=== PATIENT | male | born 1980 | race Two or more races ===

== ENCOUNTER 2020-03-08 10:06 | Emergency (ER) | payer OTHER ==
[~2020-03-08] VITALS: Ht 167.6 cm; Wt 68.0 kg
[2020-03-08 10:23] VITALS: BP 124/77
[2020-03-08] MEDS ORDERED: HYDROcodone/APAP 5/325MG 1 TAB TABLET PO ONE (10:45)
--- NOTE | 2020-03-08 10:50 | PHYS DOC ---
Past Medical History Past Medical History: No Pertinent History Past Surgical History: No Surgical History Smoking Status: Never Smoker Alcohol Use: None General Adult EDM: Chief Complaint: LOWER BACK PAIN OR INJURY HPI: HPI: Patient is a 39 year old male presents to the emergency department complaining of back pain after falling at work. 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 Patient states he has had back pain since. Patient states he took 2 regular strength Tylenols yesterday that did not seem to help. Patient denies any numbness or tingling to his extremities. Patient denies loss of bowel or bladder. Patient states she does not smoke cigarettes, does not use illicit drugs, does not drink alcohol. Patient denies any surgical history. Patient states he does not take any medications at home and is not allergic to any medications. Patient denies any other physical symptoms or physical complaints. Review of Systems: Review of Systems: 14 body systems of review of systems have been reviewed. See HPI for pertinent positives and negative responses, otherwise all other systems are negative, nonpertinent or noncontributory. Heart Score: Risk Factors: Risk Factors: DM, Current or recent (<one month) smoker, HTN, HLP, family history of CAD, obesity. Risk Scores: Score 0 - 3: 2.5% MACE over next 6 weeks - Discharge Home Score 4 - 6: 20.3% MACE over next 6 weeks - Admit for Clinical Observation Score 7 - 10: 72.7% MACE over next 6 weeks - Early Invasive Strategies Current Medications: Current Medications Medications (Trade) Dose Ordered Sig/Mary Ann Start Time Stop Time Status Last Admin Dose Admin Acetaminophen/ Hydrocodone Bitart (Lortab 5/325) 2 tab 1X ONCE 03/08/20 10:45 03/08/20 10:46 DC Allergies: Allergies: Allergies Coded Allergies Type Severity Reaction Last Updated Verified No Known Drug Allergies 03/08/20 No Physical Exam: PE: Constitutional: Well developed, well nourished, no acute distress, non-toxic appearance. HENT: Normocephalic, atraumatic, bilateral external ears normal, oropharynx moist, no oral exudates, nose normal. Eyes: PERRLA, EOMI, conjunctiva normal, no discharge. Neck: Normal range of motion, no tenderness, supple, no stridor. Cardiovascular:Heart rate regular rhythm, no murmur, heart sounds S1-S2. Lungs & Thorax: Bilateral breath sounds clear to auscultation Abdomen: Bowel sounds normal, soft, no tenderness, no masses, no pulsatile masses. Skin: Warm, dry, no erythema, no rash. Back: Right-sided CVA tenderness, midline spine pain along lower thoracic to upper lumbar region. No crepitus appreciated, no ecchymotic areas appreciated, no swelling appreciated. Extremities: No tenderness, no cyanosis, no clubbing, ROM intact, no edema. Neurologic: Alert and oriented X 3, normal motor function, normal sensory function, no focal deficits noted. We talked about Psychologic: Affect normal, judgement normal, mood normal. Actually spoke to you about it though as we talked about it in there and she said that she went to go Current Patient Data: Vital Signs: Vital Signs Date Time Temp Pulse Resp B/P (MAP) Pulse Ox O2 Delivery O2 Flow Rate FiO2 03/08/20 10:23 98.7 79 18 124/77 (93) 98 Room Air 98.7 EKG: EKG: [] Radiology/Procedures: Radiology/Procedures: SEX: M EXAM STATUS: REG ER ORD. PHYSICIAN: SANGITA TIDWELL APRN REASON: FALL >10FEET WITH SPINE PAIN PROCEDURE: CT CHEST ABD PELVIS W/CONTRAST EXAM: CT Chest, Abdomen, and Pelvis with IV contrast INDICATION: Reason: FALL >10FEET WITH SPINE PAIN / Spl. Instructions: IV OMMNI 300 75 MLS / History: TECHNIQUE: Multi-detector row CT images were acquired from the thoracic inlet through the ischial tuberosities with the use of IV contrast. Sagittal and coronal images were acquired from the transaxial data. All CT scans performed at this facility utilize dose optimization techniques as appropriate to the exam, including the following: Automated exposure control and adjustment of the mA and/or KV according to patient size (this includes techniques or standardized protocols for targeted exams where dose is indication/reason for exam). IV CONTRAST: Administered ORAL CONTRAST: Not administered COMPARISON: None FINDINGS: CHEST: CARDIOVASCULAR: Unremarkable MEDIASTINUM & RADHA: No adenopathy or masses. LUNGS: No pulmonary infiltrate, nodule, or other focal abnormality. PLEURAL SPACE: No pleural effusions or pneumothorax. OSSEOUS & SOFT TISSUE: There is absence of the right pectoralis major muscle. 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 ABDOMEN/PELVIS: LIVER: Unremarkable BILIARY SYSTEM: Gallbladder is unremarkable. Bile ducts are not dilated. PANCREAS: Unremarkable SPLEEN: Unremarkable ADRENALS: Unremarkable KIDNEYS & URETERS: Unremarkable BLADDER: Unremarkable REPRODUCTIVE ORGANS: Unremarkable GASTROINTESTINAL: The stomach, small bowel, and colon are unremarkable. The appendix is normal. MESENTERY/PERITONEUM/RETROPERITONEUM: Unremarkable VASCULAR: Unremarkable LYMPH NODES: No adenopathy OSSEOUS & SOFT TISSUES: Unremarkable IMPRESSION: Normal CT of the chest, abdomen, and pelvis. No acute traumatic findings. Electronically signed by: Randolph Dorado MD (03/08/2020 12:08 PM) [id number] DICTATED and SIGNED BY: RANDOLPH DORADO MD DATE: 03/08/20 [id number] Course & Med Decision Making: Course & Med Decision Making Pertinent Labs and Imaging studies reviewed. (See chart for details) 39-year-old male presents emergency department back pain, vital signs reviewed, patient states he fell approximately 10 feet last Saturday, physical exam concerning for possible traumatic injury, CT chest abdomen pelvis was performed, CT read negative for acute findings per house radiologist rotation. Patient was given IV fentanyl for pain which relieved his pain, patient was also given IV Toradol prior to discharge. Patient states that he needed a work excuse for returning back to work, discussed CT findings with patient, patient gave verbal understanding of home care instructions, return to ER precautions or concerns, follow-up with primary care, had no further questions or concerns discharged home without incident. Impression: #1 fall #2 back pain Dragon Disclaimer: Edwardo Disclaimer: This electronic medical record was generated, in whole or in part, using a voice recognition dictation system. Departure Departure Impression: Primary Impression: Fall Qualified Codes: W19.XXXA - Unspecified fall, initial encounter Additional Impression: Back pain Qualified Codes: M54.5 - Low back pain Disposition: 01 DC HOME SELF CARE/HOMELESS Condition: IMPROVED Referrals: NO PCP (PCP) Patient Instructions: Back Pain, Adult Additional Instructions: Take medication as prescribed, follow-up with your primary care doctor for further pain control, return to the emergency department for worsening symptoms or other concerns. EMERGENCY DEPARTMENT GENERAL DISCHARGE INSTRUCTIONS Thank you for coming to [facility] Emergency Department (ED) today and trusting us with you care. We trust that you had a positive experience in our Emergency Department. If you wish to speak to the department management, you may call the Director at [phone]. YOUR FOLLOW UP INSTRUCTIONS ARE FOLLOWS: 1. Do you have a private Doctor? If you do not have a private doctor, please ask for a resource list of physicians or clinics that may be able to assist you with follow up care. 2. The Emergency Physicain has interpreted your x-rays. The X-Ray specialist will also review them. If there is a change in the findings, you will be notified in 48 hours when at all possible. 3. A lab test or culture has been done, your results will be reviewed and you will be notified if you need a change in treatment. ADDITIONAL INSTRUCTIONS AND INFORMATION: 1. Your care today has been supervised by a physician who is specially trained in emergency care. Many problems require more than one evaluation for a complete diagnosis and treatment. We recommend that you schedule your follow up appointment as recommended to ensure complete treatment of you illness or injury. If you are unable to obtain follow up care and continue to have a problem, or if your condition worsens, we recommend that you return to the ED. 2. We are not able to safely determine your condition over the phone nor are we able to give sound medical advice over the phone. For these safety reasons, if you call for medical advice we will ask you to come to the ED for further evaluation. 3. If you have any questions regarding these discharge instructions please call the ED at [phone]. SAFETY INFORMATION: In the interest of safety, wellness, and injury prevention; we encourage you to wear your sealbelt, if you smoke; quite smoking, and we encourage family to use a protective helmet for bicycling and other sporting events that present an increased risk for head injury. IF YOUR SYMPTOMS WORSEN OR NEW SYMPTOMS DEVELOP, OR YOU HAVE CONCERNS ABOUT YOUR CONDITION; OR IF YOUR CONDITION WORSENS WHILE YOU ARE WAITING FOR YOUR FOLLOW UP APPOINTM ENT; EITHER CONTACT YOUR PRIMARY CARE DOCTOR, THE PHYSICIAN WHOSE NAME AND NUMBER YOU WERE GIVEN, OR RETURN TO THE ED IMMEDIATELY. Scripts Ibuprofen (IBUPROFEN) 600 Mg Tablet 600 MG PO TID PRN PRN for INFLAMMATION, #20 TAB 0 Refills Prov: SANGITA TIDWELL APRN 03/08/20 SANGITA TIDWELL APRN Mar 08, 2020 10:50
[2020-03-08] MEDS ORDERED: fentaNYL PF VIAL 100 MCG/2 ML VIAL ONE (10:59)
[2020-03-08] MEDS ORDERED: fentaNYL PF VIAL 100 MCG/2 ML VIAL IVP ONE (11:00)
[2020-03-08 11:18] LABS: BASO # 0.1 x10^3/uL (0.0-0.2); BASO % 1 % (0-3); EOS # 0.1 x10^3/uL (0.0-0.7); EOS % 2 % (0-3); HEMATOCRIT 49.5 % (39.0-53.0); HEMOGLOBIN 17.3 g/dL (13.0-17.5); LYMPH # 1.7 x10^3/uL (1.0-4.8); LYMPH % 25 % (24-48); MEAN CORPUSCULAR HEMOGLOBIN 31 pg (25-35); MEAN CORPUSCULAR HGB CONC 35 g/dL (31-37); MEAN CORPUSCULAR VOLUME 89 fL (79-100); MONO # 0.5 x10^3/uL (0.0-1.1); MONO % 7 % (0-9); NEUT # 4.4 x10^3/uL (1.8-7.7); NEUT % 65 % (31-73); PLATELET COUNT 262 x10^3/uL (140-400); RED BLOOD COUNT 5.59 x10^6/uL (4.30-5.70); RED CELL DISTRIBUTION WIDTH 12.5 % (11.5-14.5); WHITE BLOOD COUNT 6.8 x10^3/uL (4.0-11.0)
[2020-03-08 11:28] LABS: CALCIUM 9.2 mg/dL (8.5-10.1); CREATININE 0.7 mg/dL (0.7-1.3); GFR 126.2
[2020-03-08 11:29] LABS: BILIRUBIN,URINE NEGATIVE (NEG); CLARITY,URINE CLEAR; COLOR,URINE YELLOW; NITRITE,URINE NEGATIVE (NEG); PROTEIN,URINE NEGATIVE (NEG-TRACE)
[2020-03-08 11:34] LABS: TOTAL BILIRUBIN 0.7 mg/dL (0.2-1.0); TOTAL PROTEIN 8.1 g/dL (6.4-8.2)
[2020-03-08 11:35] LABS: POTASSIUM 4.1 mmol/L (3.5-5.1)
[2020-03-08 11:45] LABS: BACTERIA,URINE 0 /HPF (0-FEW); RBC,URINE 0 /HPF (0-2); WBC,URINE 0 /HPF (0-4)
[2020-03-08] MEDS ORDERED: CONTRAST GIVEN. MC PRN (11:45)
[2020-03-08] MEDS ORDERED: IOHEXOL 300 MG/ML 100ML VIAL. IV ONE (11:45)
--- NOTE | 2020-03-08 12:10 | RAD ---
EXAM: CT Chest, Abdomen, and Pelvis with IV contrast INDICATION: Reason: FALL >10FEET WITH SPINE PAIN / Spl. Instructions: IV OMMNI 300 75 MLS / History: TECHNIQUE: Multi-detector row CT images were acquired from the thoracic inlet through the ischial tu berosities with the use of IV contrast. Sagittal and coronal images were acquired from the transaxial data. All CT scans performed at this facility utilize dose optimization techniques as appropriate to the exam, including the following: Automated exposure control and adjustment of the mA and/or KV acc ording to patient size (this includes techniques or standardized protocols for targeted exams where d ose is indication/reason for exam). IV CONTRAST: Administered ORAL CONTRAST: Not administered COMPARISON: None FINDINGS: CHEST: CARDIOVASCULAR: Unremarkable MEDIASTINUM & RADHA: No adenopathy or masses. LUNGS: No pulmonary infiltrate, nodule, or other focal abnormality. PLEURAL SPACE: No pleural effusions or pneumothorax. OSSEOUS & SOFT TISSUE: There is absence of the right pectoralis major muscle. In the absence of any p rior history of surgery, this could reflect hypoplasia of the right breast and chest wall musculature as can be seen with [place] syndrome. ABDOMEN/PELVIS: LIVER: Unremarkable BILIARY SYSTEM: Gallbladder is unremarkable. Bile ducts are not dilated. PANCREAS: Unremarkable SPLEEN: Unremarkable ADRENALS: Unremarkable KIDNEYS & URETERS: Unremarkable BLADDER: Unremarkable REPRODUCTIVE ORGANS: Unremarkable GASTROINTESTINAL: The stomach, small bowel, and colon are unremarkable. The appendix is normal. MESENTERY/PERITONEUM/RETROPERITONEUM: Unremarkable VASCULAR: Unremarkable LYMPH NODES: No adenopathy OSSEOUS & SOFT TISSUES: Unremarkable IMPRESSION: Normal CT of the chest, abdomen, and pelvis. No acute traumatic findings. Electronically signed by: Juan Francisco Dorado MD (03/08/2020 12:08 PM) [id number]
[2020-03-08] MEDS ORDERED: KETOROLAC 30 MG/ML VIAL. IVP ONE (13:15)
[2020-03-08] MEDS ORDERED: IBUP-1007 PO (13:17)
== END 2020-03-08 13:46 | disposition home or self-care (01) ==
LOC: ER 10:06
DX: M54.5 Low back pain (principal); G89.11 Acute pain due to trauma; W18.39XA Other fall on same level, initial encounter; Y93.89 Activity, other specified; Y92.69 Other specified industrial and construction area as the place of occurrence of the external cause; Y99.0 Civilian activity done for income or pay
CPT/HCPCS: 36415; 71260; 74177; 80053; 81001; 85025; 96374; 96375; 99285; J1885; J3010; Q9967